=== PATIENT | male | born 1960 | race Hispanic/Latino ===

== ENCOUNTER 2020-09-30 14:48 | Inpatient (IN) | payer OTHER, SELFPAY ==
[2020-09-30 15:55] LABS: #Basophils 0.1 thou/uL (0.0-0.2); #Monocytes 0.6 thou/uL (0.11-0.59); #Neutrophils 7.7 thou/uL (1.40-6.50); %Basophils 0.9 % (0.0-1.0); %Eosinophils 0.4 % (0.0-10.0); %Lymphocytes 10.8 % (21.0-51.0); %Monocytes 6.2 % (0.0-10.0); %Neutrophils 81.7 % (42.0-75.0); Hemoglobin 14.8 g/dL (14.0-18.0); Mean Corpuscular HGB CONC 35.3 g/dL (32.0-36.0); Mean Corpuscular Hemoglobin 34.9 pg (27.0-31.0); Mean Corpuscular Volume 98.8 fL (78.0-98.0); Mean Platelet Volume 8.2 fL (7.4-10.4); Platelet Count 218 thou/uL (130-400); RBC Distribution Width 12.7 % (11.5-14.5); Red Blood Cell (RBC) Count 4.25 mill/uL (4.70-6.10); White Blood Cell (WBC) Count 9.4 thou/uL (4.8-10.8)
[2020-09-30 16:11] LABS: ALT (SGPT) 79 U/L (8-55); AST (SGOT) 86 U/L (5-34); Albumin 4.1 g/dL (3.5-5.0); Alkaline Phosphatase 188 U/L (40-110); Anion Gap 13 mmol/L (10-20); BUN (Urea Nitrogen) 12 mg/dL (8.4-25.7); Calc. Creatinine Clearance 0 mL/min (70-130); Calcium 8.9 mg/dL (7.8-10.44); Carbon Dioxide 25 mmol/L (22-29); Chloride 104 mmol/L (98-107); Globulin 3.4 g/dL (2.4-3.5); Glucose 95 mg/dL (70-105); Protein, Total 7.5 g/dL (6.0-8.3); Sodium 138 mmol/L (136-145)
--- NOTE | 2020-09-30 16:13 | RAD ---
Exam:3 views left hand HISTORY: Injury to the left first digit. Laceration. COMPARISON: None FINDINGS: There is a fracture involving the distal phalanx of the first digit. Overlying bandage mate rial limits evaluation for radiopaque foreign body. There is soft tissue swelling, and subcutaneous emphysema suggesting laceration. No additional fractures. IMPRESSION: Posttraumatic changes involving the left first digit.
[2020-09-30] MEDS ORDERED: Gentamicin 80 MG/2 ML VIAL ONE (16:49)
[2020-09-30] MEDS ORDERED: Gentamicin Sulfate 80 MG in Premix Bag 1 BAG IVPB ONE (17:00)
[2020-09-30] MEDS ORDERED: Bupivacaine PF 0.5% 30 ML VIAL ONE (18:22)
[2020-09-30] MEDS ORDERED: Thrombin 5000 UNITS/5 ML VIAL ONE (18:23)
[2020-09-30] MEDS ORDERED: Sodium Chloride 0.9% 30 ML ONE (18:23)
[2020-09-30] MEDS ORDERED: Bacitracin Zinc Ointment 30 gm TUBE ONE (18:23)
[2020-09-30 18:50] LABS: SARS-CoV-2 NAA Rapid Test Not Detected (NotDetected)
[2020-09-30] MEDS ORDERED: Midazolam HCl 2 mg/2 ml Vial ONE (19:42)
[2020-09-30] MEDS ORDERED: Fentanyl 250 MCG/5 ML VIAL ONE (19:42)
[2020-09-30] MEDS ORDERED: Ketorolac Tromethamine 30 MG/ML VIAL ONE (20:12)
[2020-09-30] MEDS ORDERED: Labetalol HCl 100 MG/20 ML VIAL ONE (20:12)
[2020-09-30] MEDS ORDERED: Dexamethasone 20 MG/5 ML VIAL ONE (20:12)
[2020-09-30] MEDS ORDERED: Lidocaine 1% PF 5 ML VIAL ONE (20:12)
[2020-09-30] MEDS ORDERED: Ondansetron PF 4 MG/2 ML Vial ONE (20:12)
[2020-09-30] MEDS ORDERED: Rocuronium Bromide 10 MG/ML (10ML VIAL) ONE (20:12)
[2020-09-30] MEDS ORDERED: PHENYLEPHRINE-NS 100 MCG/ML 10 ML SYRINGE ONE (20:12)
[2020-09-30] MEDS ORDERED: diphenhydrAMINE 50 MG/ML VIAL ONE (20:12)
[2020-09-30] MEDS ORDERED: Esmolol 100 MG/10 ML VIAL ONE (20:12)
[2020-09-30] MEDS ORDERED: Glycopyrrolate 0.2 MG/ML 5 ML SYRINGE ONE (20:12)
[2020-09-30] MEDS ORDERED: PROPOFOL 200 MG/20 ML VIAL ONE (20:12)
[2020-09-30] MEDS ORDERED: Phenylephrine 10 MG/ML VIAL ONE (20:54)
[2020-09-30] MEDS ORDERED: Hetastarch 6% 500 ML 500 ML ONE (21:21)
[2020-09-30] MEDS ORDERED: Heparin 10,000 UNITS/ 10 ML VIAL ONE (21:21)
[2020-09-30] MEDS ORDERED: Lidocaine 2% PF 5 ML VIAL ONE (21:21)
[2020-09-30] MEDS ORDERED: Heparin 25,000 units/D5W 500 ML ONE (22:28)
[2020-10-01] MEDS ORDERED: Ondansetron HCl/PF 4 MG/2 ML Vial IVP PRN (00:44)
[2020-10-01] MEDS ORDERED: Promethazine HCl 25 MG/ML VIAL IM PRN ×2 (00:44→00:51)
[2020-10-01] MEDS ORDERED: Morphine Sulfate 2 MG/ML SYRINGE SLOW IVP PRN (00:44)
[2020-10-01] MEDS ORDERED: Fentanyl 100 MCG/2 ML VIAL SLOW IVP PRN (00:51)
[2020-10-01] MEDS ORDERED: HYDROcodone/Acetaminophen 5/325 mg Tablet PO PRN (00:51)
[2020-10-01] MEDS ORDERED: Ondansetron PF 4 MG/2 ML Vial SLOW IVP PRN (00:51)
[2020-10-01] MEDS ORDERED: Acetaminophen 325 MG TAB PO PRN (00:51)
[2020-10-01] MEDS ORDERED: Fentanyl 100 MCG/2 ML VIAL ONE (00:51)
[2020-10-01] MEDS ORDERED: traMADol HCl 50 MG TAB PO PRN (00:51)
[2020-10-01] MEDS ORDERED: Morphine 4 MG/ML VIAL SLOW IVP PRN (00:51)
[2020-10-01] MEDS ORDERED: Meperidine HCl/PF 25 MG/ML VIAL IM PRN (00:58)
[2020-10-01] MEDS ORDERED: Pharmacy to Dose : VANC/ABX'S IVPB PRN (01:00)
[2020-10-01] MEDS: Hetastarch 6% 500 ML 500 ML IVPB SCH ×2 (01:10→14:45)
[2020-10-01 01:52] VITALS: BMI 28.8
[2020-10-01] MEDS ORDERED: Heparin 25,000 units/D5W 500 ML IV SCH (02:00)
--- NOTE | 2020-10-01 07:49 | RAD ---
Intraoperative imaging of the left thumb: 10/01/2020 HISTORY: Fracture status post ORIF FINDINGS: 4 intraoperative images are provided. A markedly comminuted fracture of the first distal ph alanx is treated with 2 percutaneous pins. IMPRESSION: Percutaneous pinning of comminuted fracture first distal phalanx.
[2020-10-01] MEDS: VANCOMYCIN 1.25 GM/250 ML BAG 1.25 GM in Premix Bag 1 BAG IVPB SCH ×2 (08:46→20:32)
[2020-10-01] MEDS: Aspirin 81 mg Enteric Coated Tablet PO SCH ×2 (08:46→20:32)
[2020-10-01] MEDS ORDERED: FLU VACC QS2020-21(6MOS UP)/PF 60 MCG/0.5 ML SYRINGE IM ONE (09:00)
[2020-10-01] MEDS ORDERED: Vancomycin 1 GM in Premix Bag 1 BAG IVPB SCH (09:00)
[2020-10-01] MEDS ORDERED: TETANUS AND DIPHTHERIA TOX/PF 0.5 ML DISP.SYRIN IM SCH (09:00)
--- NOTE | 2020-10-01 10:30 | PDOC.CONS ---
- Consultation Encounter Date: 10/01/20 Encounter Time: 10:20 CONSULT REQUESTED BY: Dr. Ford Bhakta HISTORY OF PRESENT ILLNESS: Mr. Salgado is a 60-year-old male with past medical history of hypertension who presented to the emergency room on 09/30/2020 for a left thumb laceration. Patient injured his thumb in a table saw. Initial vital signs in the emergency room were 185/89, 60, 18, 99.3, 99% on room air. Bleeding was controlled and an x-ray of the hand showed a fracture of the distal phalanx of the first digit on the left hand as well as soft tissue swelling and subcutaneous emphysema consistent with laceration. Patient received gentamicin and cefazolin in the emergency room and was taken to the operating room by Dr. Bhakta for traumatic repair. Patient tolerated procedure well and is now on the medical floor postoperatively. Hospitalist service was consulted for medical management of patient's hypertension. Mr. Salgado reports a history of hypertension and he is on daily lisinopril 10 mg. He follows with a primary care provider, Dr. Hay out of [facility]. He denies any history of cardiac disease, pulmonary disease or kidney disease. He does report some right shoulder chronic pain which he manages with Tylenol. On my examination he is resting comfortably in bed denies headache, chest pain, shortness of breath or abdominal pain. REVIEW OF SYSTEMS: Constitutional: denies: fever, chills, sweats, weakness, malaise Eyes: denies: pain, vision change, conjunctivae inflammation, eyelid inflammation, redness ENT: denies: ear pain, ear discharge, nose pain, nose discharge, nose congestion, mouth pain, mouth swelling, throat pain, throat swelling Respiratory: denies: cough, dry, shortness of breath, hemoptysis, SOB with excertion, pleuritic pain, sputum, wheezing Cardiovascular: denies: chest pain, palpitations, orthopnea, paroxysmal noc. dyspnea, edema, light headedness Gastrointestinal: denies: nausea, vomiting, abdominal pain, diarrhea, constipation, melena, hematochezia Genitourinary: denies: dysuria, frequency, incontinence, hematuria, retention Musculoskeletal: denies: neck pain, shoulder pain, arm pain, back pain, hand pain, leg pain, foot pain Skin: denies: rash, lesions, catalina, bruising, other Neurological: denies: weakness, numbness, incoordination, change in speech, confusion, seizures PHYSICAL EXAM: Vitals: 159/98.2, 73, 16, 100% on room air General Appearance: NAD, awake alert Eye: PERRL, anicteric sclera ENT: normocephalic atraumatic, no oropharyngeal lesions, moist mucosa Neck: supple, symmetric, no JVD, no thyromegaly, no lymphadenopathy, no carotid bruit Heart: RRR, no murmur, no gallops, no rubs, normal peripheral pulses Respiratory: CTAB, no wheezes, no rales, no ronchi, normal chest expansion, no tachypnea, normal percussion Gastrointestinal: soft, non-tender, non-distended, normal bowel sounds, no palpable masses, no hepatomegaly, no splenomegaly, no bruit Extremities: no cyanosis, no clubbing, no edema Skin: normal turgor, no lesions, no rashes Neurological: cranial nerve grossly intact, normal sensation to touch, no weakness, no focal deficits, no new deficit Musculoskeletal: normal tone, normal strength, no muscle wasting Psychiatric: normal affect, normal behavior, A&O x 3 Laboratory Results - last 24 hr 09/30/20 09/30/20 09/30/20 15:35 15:35 17:28 WBC 9.4 RBC 4.25 L Hgb 14.8 Hct 42.0 MCV 98.8 H MCH 34.9 H MCHC 35.3 RDW 12.7 Plt Count 218 MPV 8.2 Neutrophils % 81.7 H Lymphocytes % 10.8 L Monocytes % 6.2 Eosinophils % 0.4 Basophils % 0.9 Neutrophils # 7.7 H Lymphocytes # 1.0 L Monocytes # 0.6 H Eosinophils # 0.0 Basophils # 0.1 Sodium 138 Potassium 4.0 Chloride 104 Carbon Dioxide 25 Anion Gap 13 BUN 12 Creatinine 0.79 Estimated GFR (MDRD) Greater than 90 Glucose 95 Calcium 8.9 Total Bilirubin 1.0 AST 86 H ALT 79 H Alkaline Phosphatase 188 H Serum Total Protein 7.5 Albumin 4.1 Globulin 3.4 Albumin/Globulin Ratio 1.2 SARS-CoV-2 Rap RNA(RT-PCR) Not Detected Active Medications Acetaminophen (Acetaminophen 325 Mg Tab) 650 mg PO Q6H PRN PRN Reason: Headache/Temp >101F/Mild Pain Hydrocodone Bitart/Acetaminophen (Hydrocodone/Acetaminophen 5/325 Mg Tablet) 2 tab PO Q4H PRN PRN Reason: Severe Pain (7-10) Aspirin (Aspirin 81 Mg Enteric Coated Tablet) 81 mg PO BID [facility] Last Admin: 10/01/20 08:46 Dose: 81 mg Documented by: Fentanyl (Fentanyl 100 Mcg/2 Ml Vial) 50 mcg SLOW IVP Q30M PRN PRN Reason: Severe breakthrough pain Vancomycin HCl 1.25 gm/ Device 250 mls @ 166.667 mls/hr IVPB 799,1999 [facility] Stop: 10/03/20 23:59 Last Admin: 10/01/20 08:46 Dose: 250 mls Documented by: Heparin Sodium/Dextrose (Heparin 25,000 Units/D5w) 500 mls @ 4 mls/hr IV INF [facility] Last Admin: 10/01/20 01:10 Dose: 500 mls Documented by: Hetastarch/Sodium Chloride (Hespan) 500 mls @ 30 mls/hr IVPB INF [facility] Last Admin: 10/01/20 01:10 Dose: 500 mls Documented by: Meperidine HCl (Meperidine Hcl/Pf 25 Mg/Ml Vial) 25 mg IM Q6H PRN PRN Reason: Severe Pain (7-10) Miscellaneous Medication (Pharmacy To Dose : Vanc/Abx's) 1 each IVPB PRN PRN PRN Reason: Pharmacy to dose Morphine Sulfate (Morphine 4 Mg/Ml Vial) 4 mg SLOW IVP Q2H PRN PRN Reason: Severe Pain (7-10) Ondansetron HCl (Ondansetron Pf 4 Mg/2 Ml Vial) 4 mg SLOW IVP Q6H PRN PRN Reason: Nausea Promethazine HCl (Promethazine Hcl 25 Mg/Ml Vial) 12.5 mg IM Q4H PRN PRN Reason: Nausea Sodium Chloride (Flush - Normal Saline 10 Ml Syringe) 10 ml IVF PRN PRN PRN Reason: Saline Flush Tramadol HCl (Tramadol Hcl 50 Mg Tab) 50 mg PO Q6H PRN PRN Reason: Mild Pain (1-3) ASSESSMENT AND PLAN: L thumb laceration S/p surgical repair with Dr. Bhakta. Patient tolerated procedure well. Post- operative course per surgical team Hypertension Patient with hx of HTN on home lisinopril. Patient quite hypertensive in the ER, mostly likely 2/2 pain. Will restart home lisinopril and make PRN hydralazine available. If patient continues to need prn BP medications, will consider adding on a second agent prior to discharge. DVT prophylaxis- per surgical team FULL CODE Case discussed with attending physician, Dr. Thompson.
[2020-10-01] MEDS: hydrALAZINE 20 MG/ML VIAL SLOW IVP PRN (16:21)
--- NOTE | 2020-10-02 05:12 | OP ---
DATE OF PROCEDURE: 10/01/2020 PREOPERATIVE DIAGNOSES: 1. Open left thumb grade 3 fracture with digital artery nerve injuries. 2. Partial bone segmental loss. FINDINGS: Gross contamination was mild compared to expected because of a saw injury, but there was marked loss, segmental in bone, there were missing arterial bundles distal to the edge (patient has a complex laceration where the transverse limb was only 5 mm from the digit tip). PROCEDURES PERFORMED: 1. Debridement of bone and material associated with open fracture. 2. Debridement of wound. 3. 4 cm wound closure. 4. Digital nerve neuroplasty with microscopic. 5. Microscopic digital nerve repair, three times rami. 6. Ligation of arterial bleeder. 7. C-arm supervision. SPECIMENS REMOVED: None. ESTIMATED BLOOD LOSS: 25 mL. TOURNIQUET TIME: 110 minutes. C-ARM USED: Yes. FINDINGS: 1. Volar segmental loss of bone, nerve, and artery. 2. Radial base bundle bleeding supply, the digit tip after procedures were ended indicative of living arterial circulation to include back bleeding from the wound at the distal edge. The proximal edge of the wound distal to the laceration site. DESCRIPTION OF PROCEDURE: After successful general endotracheal anesthesia, the limb was prepped and draped. The patient had been counseled with his to include possible digital loss. The patient then had the limb exsanguinated after prepping and draping, I gave him a total of 25 mL of 0.5% Marcaine, 15 before the procedure and 10 after digital block. We then exsanguinated the limb and inflated tourniquet to 250 mmHg pressure. Of note, when the flap of tissue was stable, the blood supply was maintained. We then extended incision along the ulnar aspect where he had the most damage. Debrided the wound edges using a combination of tenotomy scissors, curetted the bone, irrigation with 3 L of normal saline, Pulsavac, and there was no evidence of gross wound particle contamination either under loupe magnification. We then dissected proximally until we found that the neurovascular bundle primarily inserted into the proximal flap to include arterial supply except for there was a laceration of the one of the central arterial of the plexus. For this reason, we finished irrigation debridement and immediately performed open reduction and internal fixation with K-wires x2. It was difficult because the segmental loss was worse proximally. Once this was stable and nearly anatomical position as possible save for the bone loss, the IP joint was stable and we noticed that the entire flexor tendon was attached proximal to the bony injury level. We then performed a digital nerve neuroplasty under microscope with the microscope into field and found that 2 of the rami were completely denuded from the recipient edge of the wound distal to the laceration, but there were 3 that could be identified and so these rami were repaired using 9-0, 10-0 Nurolon under microscopic evaluation. A microscopic neuroplasty was completed. We then did the same microscopy after we had placed the K-wires and we were able to notice that when the skin edges were stable and the wires were in appropriate position, there was bleeding distally well documented. We then finished irrigation with another liter normal saline at this time with bulb syringe pressure. We then used the same microscope to repair 3 of the rami/bundles, 2 on the radial side and 1 on the ulnar side. We were also able to attempt to perform arterial repair, but we did not find a donor site for the microscopic procedure, so we then had the patient's wound irrigated, we under microscope with 10-0 nylon ligated of the one arterial supplies from the proximal and then we began closure gently. This was done with interrupted 4-0 nylon, first on the side with the most damage. This appeared to be soft tissue The 9-0 that was used completed the digital repairs, we again searched for the arterial, but we did not find it and then noticed, however, the finger was pink, with 1 to 1.5 second refill and edema was mild to moderate. These results were where it was curetted as well as the bone was debrided and with the last irrigation, we then had hemostasis enough to close the incision. This was done individually with a 4-0 nylon in simple pattern. The patient then had the bleeder from the arterial branch ligated as well and wound closure accomplished with a 4-0 nylon simple pattern. A splint was applied with the digits pink after given a bolus of heparin and began appropriate drip. Job ID: [id number]
[2020-10-02] MEDS ORDERED: Hetastarch 6% 500 ML 500 ML IVPB SCH (06:00)
[2020-10-02 07:25] LABS: Vancomycin, Trough 12.6 ug/mL
[2020-10-02] MEDS ORDERED: Aspirin 325 mg Enteric Coated Tablet PO SCH (07:45)
[2020-10-02] MEDS ORDERED: hydrALAZINE 25 MG TAB PO PRN (08:45)
[2020-10-02] MEDS: VANCOMYCIN 1.25 GM/250 ML BAG 1.25 GM in Premix Bag 1 BAG IVPB SCH (08:47)
[2020-10-02] MEDS ORDERED: Lisinopril 10 MG TAB PO SCH (09:00)
[2020-10-02] MEDS: hydrALAZINE 20 MG/ML VIAL SLOW IVP PRN ×2 (11:35→16:42)
[2020-10-02] MEDS ORDERED: Aspirin 81 mg Enteric Coated Tablet ONE (12:52)
[2020-10-02] MEDS: Aspirin 81 mg Enteric Coated Tablet PO SCH (12:54)
[2020-10-02 16:48] VITALS: TEMP 98.4
[2020-10-02 16:51] VITALS: BP 179/93
--- NOTE | 2020-10-02 19:39 | PDOC.HOSPP ---
- Subjective Encounter Date: 10/02/20 Encounter Time: 10:00 Subjective: Patient seen and examined for medical management. Denies any chest pain, shortness of breath or palpitations. - Objective Vital Signs & Weight: Vital Signs (12 hours) Temp Pulse Resp BP BP Pulse Ox 10/02/20 16:42 72 179/93 H 10/02/20 15:38 98.4 F 82 16 170/99 H 95 10/02/20 11:35 72 179/93 H 10/02/20 10:58 98.2 F 72 16 192/98 H 100 10/02/20 08:47 164/89 H 10/02/20 08:20 98 10/02/20 08:16 98.4 F 73 16 164/89 H 98 Weight Weight 178 lb 6.4 oz I&O: 10/01/20 10/02/20 10/03/20 06:59 06:59 06:59 Intake Total 1607 Output Total 1325 Balance 282 Result Diagrams: 09/30/20 15:35 09/30/20 15:35 Additional Labs: Laboratory Last Values WBC 9.4 thou/uL (4.8-10.8) 09/30/20 15:35 RBC 4.25 mill/uL (4.70-6.10) L 09/30/20 15:35 Hgb 14.8 g/dL (14.0-18.0) 09/30/20 15:35 Hct 42.0 % (42.0-52.0) 09/30/20 15:35 MCV 98.8 fL (78.0-98.0) H 09/30/20 15:35 MCH 34.9 pg (27.0-31.0) H 09/30/20 15:35 MCHC 35.3 g/dL (32.0-36.0) 09/30/20 15:35 RDW 12.7 % (11.5-14.5) 09/30/20 15:35 Plt Count 218 thou/uL (130-400) 09/30/20 15:35 MPV 8.2 fL (7.4-10.4) 09/30/20 15:35 Neutrophils % 81.7 % (42.0-75.0) H 09/30/20 15:35 Lymphocytes % 10.8 % (21.0-51.0) L 09/30/20 15:35 Monocytes % 6.2 % (0.0-10.0) 09/30/20 15:35 Eosinophils % 0.4 % (0.0-10.0) 09/30/20 15:35 Basophils % 0.9 % (0.0-1.0) 09/30/20 15:35 Neutrophils # 7.7 thou/uL (1.40-6.50) H 09/30/20 15:35 Lymphocytes # 1.0 thou/uL (1.20-3.40) L 09/30/20 15:35 Monocytes # 0.6 thou/uL (0.11-0.59) H 09/30/20 15:35 Eosinophils # 0.0 thou/uL (0.0-0.7) 09/30/20 15:35 Basophils # 0.1 thou/uL (0.0-0.2) 09/30/20 15:35 Sodium 138 mmol/L (136-145) 09/30/20 15:35 Potassium 4.0 mmol/L (3.5-5.1) 09/30/20 15:35 Chloride 104 mmol/L (98-107) 09/30/20 15:35 Carbon Dioxide 25 mmol/L (22-29) 09/30/20 15:35 Anion Gap 13 mmol/L (10-20) 09/30/20 15:35 BUN 12 mg/dL (8.4-25.7) 09/30/20 15:35 Creatinine 0.79 mg/dL (0.7-1.3) 09/30/20 15:35 Estimated GFR (MDRD) Greater than 90 09/30/20 15:35 Glucose 95 mg/dL (70-105) 09/30/20 15:35 Calcium 8.9 mg/dL (7.8-10.44) 09/30/20 15:35 Total Bilirubin 1.0 mg/dL (0.2-1.2) 09/30/20 15:35 AST 86 U/L (5-34) H 09/30/20 15:35 ALT 79 U/L (8-55) H 09/30/20 15:35 Alkaline Phosphatase 188 U/L (40-110) H 09/30/20 15:35 Serum Total Protein 7.5 g/dL (6.0-8.3) 09/30/20 15:35 Albumin 4.1 g/dL (3.5-5.0) 09/30/20 15:35 Globulin 3.4 g/dL (2.4-3.5) 09/30/20 15:35 Albumin/Globulin Ratio 1.2 g/dL (1.2-2.2) 09/30/20 15:35 Vancomycin Trough 12.6 ug/mL 10/02/20 05:33 SARS-CoV-2 Rap RNA(RT-PCR) Not Detected (NotDetected) 09/30/20 17:28 Radiology Reviewed by me: Yes (Hand x-ray reviewed) Hospitalist ROS - Review of Systems Respiratory: denies: cough, dry, shortness of breath, hemoptysis, SOB with excertion, pleuritic pain, sputum, wheezing, other Cardiovascular: denies: chest pain, palpitations, orthopnea, paroxysmal noc. dyspnea, edema, light headedness, other - Medication Medications: Active Medications Generic Name Dose Route Start Last Admin Trade Name Freq PRN Reason Stop Dose Admin Hetastarch/Sodium Chloride 500 mls @ 30 mls/hr 10/01/20 02:00 10/01/20 14:45 Hespan IVPB 10/02/20 05:59 500 mls INF [facility] Hospitalist Exam Vitals: Vital Signs (12 hours) Temp Pulse Resp BP BP Pulse Ox 10/02/20 16:42 72 179/93 H 10/02/20 15:38 98.4 F 82 16 170/99 H 95 10/02/20 11:35 72 179/93 H 10/02/20 10:58 98.2 F 72 16 192/98 H 100 10/02/20 08:47 164/89 H 10/02/20 08:20 98 10/02/20 08:16 98.4 F 73 16 164/89 H 98 Weight Weight 178 lb 6.4 oz General Appearance: awake alert Neck: supple, no JVD Heart: RRR, no gallops Respiratory: no wheezes, no ronchi Gastrointestinal: soft, non-tender, normal bowel sounds Extremities: no cyanosis Musculoskeletal: generalized weakness Psychiatric: A&O x 3 Hosp A/P (1) Hypertension Code(s): I10 - ESSENTIAL (PRIMARY) HYPERTENSION Status: Acute Qualifiers: Hypertension type: unspecified Qualified Code(s): I10 - Essential (primary) hypertension (2) Abnormal LFTs Code(s): R94.5 - ABNORMAL RESULTS OF LIVER FUNCTION STUDIES - Plan DVT proph w/SCDs Last blood pressure 157/85. Continue lisinopril 10 mg daily for now. We will add hydralazine prn. Will consider increasing lisinopril to 10 mg bid based on his blood pressure later today. Patient was counseled on importance of blood pre ssure management. Repeat LFTs after 1-2 weeks as outpatient.
== END 2020-10-02 19:30 | disposition home or self-care (01) | DRG 513 ==
LOC: ERS 14:48 → SDC/OP 20:12 → SURG A 10-01 00:57
PROVIDERS: ADMIT Orthopaedic Surgery Hand Surgery; ATTEND Orthopaedic Surgery Hand Surgery
PROC: 0PSS04Z Reposition Left Thumb Phalanx with Internal Fixation Device, Open Approach (ICD-10-PCS; principal; 2020-10-01)
PROC: 03QF0ZZ Repair Left Hand Artery, Open Approach (ICD-10-PCS; 2020-10-01)
PROC: 01Q50ZZ Repair Median Nerve, Open Approach (ICD-10-PCS; 2020-10-01)
DX: S62.522B Displaced fracture of distal phalanx of left thumb, initial encounter for open fracture (principal); S65.412A Laceration of blood vessel of left thumb, initial encounter; I10 Essential (primary) hypertension; Z20.822 Contact with and (suspected) exposure to COVID-19; R94.5 Abnormal results of liver function studies; Z28.21 Immunization not carried out because of patient refusal; W27.8XXA Contact with other nonpowered hand tool, initial encounter
CPT/HCPCS: 76000; 80053; 80202; 85025; 96365; 96367; G0390; J0360; J0690; J1100; J1200; J1580; J1644; J1885; J2001; J2250; J2270; J2370; J2405; J2704; J3010; J3370; J3490; S0020; U0002